=== PATIENT | male | born 1990 | race Caucasian/White ===

== ENCOUNTER 2016-10-21 13:14 | Emergency (ER) | payer OTHER ==
--- NOTE | ~2016-10-21 | ER ---
PATIENT'S NAME: DANIELLE FRIAS [facility] AGE: 26 Y [address] ROOM: [place] [address] LOCATION: [facility] ADMIT DATE: 10/21/2016 ER/Outpatient Report DISCHARGE DATE: 10/21/2016 FAMILY PHYSICIAN: PHYSICIAN, NO ATTENDING PHYSICIAN: Hilary Johnston ARRIVAL TIME: 1332 hours. ENCOUNTER TIME: 1335 hours. SUBJECTIVE: CHIEF COMPLAINT: Right eyebrow laceration. HISTORY OF PRESENT ILLNESS: The patient is a pleasant and well-appearing 26-year-old male with a 2 cm laceration that follows the inferior aspect of his lateral right eyebrow. He was working underneath a vehicle earlier today when the lift was lowered unexpectedly and struck him on the forehead. Denies any headache or loss of consciousness. No head, neck, or back pain. Last tetanus shot was 7 years ago when he was applying to the [employer] and had all of his shots updated. PERTINENT REVIEW OF SYSTEMS: All systems were reviewed by me and negative unless otherwise stated in the HPI above. PAST MEDICAL HISTORY: The patient denies. PAST SURGICAL HISTORY: Tonsillectomy as a child. MEDICATIONS: None. ALLERGIES: PENICILLIN ALLERGY, CAUSES RASH. SOCIAL HISTORY: Nonsmoker, but does consume alcohol socially. PATIENT'S NAME: DANIELLE FRIAS [facility] AGE: 26 Y [address] ROOM: [place] [address] LOCATION: [facility] ADMIT DATE: 10/21/2016 ER/Outpatient Report DISCHARGE DATE: 10/21/2016 FAMILY PHYSICIAN: PHYSICIAN, NO ATTENDING PHYSICIAN: Hilary Johnston OBJECTIVE: VITAL SIGNS: Weight 91 kg and height 6 feet even. Blood pressure 169/74, pulse 90, respirations 16 breaths per minute, temperature 99 degrees Fahrenheit tympanically, and SpO2 of 99% on room air. Pain 0/10. GENERAL: The patient is well developed, well nourished, and in no acute distress. Calm. Alert and oriented to person, place, and time. HEENT: Head shows a 2 cm laceration following the patient's right eyebrow on the lateral aspect. Normocephalic otherwise. Eyes with conjunctivae clear bilaterally. No discharge. Pupils are PERRLA bilaterally. EOMFI bilaterally. No nystagmus. No acute vision changes. Ears with tympanic membranes showing good light reflex bilaterally. Auditory canals are patent bilaterally. Nose with pink turbinates and not swollen. No drainage. Throat with midline uvula. No exudates, erythema, or tonsillar hypertrophy. NECK: Supple and without lymphadenopathy. Trachea midline. No JVD. Full range of motion without discomfort. Nontender along cervical paraspinal prominences. LUNGS: Clear to auscultation bilaterally. No wheezes, crackles, rhonchi, or stridor. Normal respiratory effort. HEART: Regular rate and rhythm. No S3, S4, or extra sounds. ASSESSMENT: Right eyebrow laceration. PLAN: The patient verbalized consent for suture repair of his right eyebrow. 2 mL of 1% lidocaine with epinephrine was infiltrated in the local tissue surrounding the right eyebrow laceration. Once local anesthesia was established, the area was scrubbed with saline and clean gauze to remove any large contaminant. Then, povidone-iodine was applied to the wound and thoroughly scrubbed in expanding concentric circular motions to establish a sterile field. This was repeated 3 times. Bleeding controlled with direct pressure. No foreign bodies on exploration. Continuous running suture placed using 5-0 Prolene on the eye with good reapproximation of wound edges with gentle eversion. Care was taken not to strangulate the edges. Bleeding controlled. The patient tolerated the procedure well. Wound edges were dressed with bacitracin and a Band-Aid. Discussed wound care in detail with the patient and provided a wound care handout for his reference. All of his questions were answered. Advised him to return to a clinic of his choosing for suture removal in 5 to 7 days. He verbalized understanding. Tdap is current, and no need for antibiotics at this time. Take all medications as prescribed. Discussed medication risks, side effects, and benefits in detail with the patient. Get plenty of rest and liquids. Take Tylenol or ibuprofen as directed for fever or discomfort unless allergic, asthmatic, or aspirin sensitive. Return to the emergency department or PATIENT'S NAME: DANIELLE FRIAS [facility] AGE: 26 Y [address] ROOM: [place] [id number] LOCATION: [facility] ADMIT DATE: 10/21/2016 ER/Outpatient Report DISCHARGE DATE: 10/21/2016 FAMILY PHYSICIAN: PHYSICIAN, NO ATTENDING PHYSICIAN: Hilary Johnston primary care provider if symptoms persist or worsen. BROWN ALCANTAR PA-C FOR MD JESSY DRISCOLL/modl /[id number] d: 10/21/16 1810 t: 10/27/16 1217, OUTPATIENT REPORT
== END 2016-10-21 14:01 | disposition disaster alternative care site (69) ==
LOC: GACC 13:14
PROC: 0HQ1XZZ Repair Face Skin, External Approach (ICD-10-PCS; principal; 2016-10-21)
DX: S01.111A Laceration without foreign body of right eyelid and periocular area, initial encounter (principal); Z88.0 Allergy status to penicillin; Z90.89 Acquired absence of other organs; W20.8XXA Other cause of strike by thrown, projected or falling object, initial encounter